=== PATIENT | female | born 1985 | race Caucasian/White ===

== ENCOUNTER → 2021-02-16 12:07 | Outpatient (BNVA) | payer OTHER, SELFPAY | PROVIDERS: PCP Internal Medicine; Visit Provider Advanced Practice Midwife ==

== ENCOUNTER → 2021-03-16 13:56 | Outpatient (BNVA) | payer OTHER, SELFPAY | PROVIDERS: PCP Nurse Practitioner Family; Visit Provider Advanced Practice Midwife | DX: Z30.432 Encounter for removal of intrauterine contraceptive device (principal) | CPT/HCPCS: 58301 ==

== ENCOUNTER 2022-11-17 06:47 | Outpatient (REF) | payer OTHER, SELFPAY ==
[2022-11-17 06:57] LABS: MANUAL DIFF FLAG NO
[2022-11-17 08:47] LABS: Basophils Absolute Auto 0.1 X10*3/uL (0.0-0.2); Eosinophils Absolute Auto 0.1 X10*3/uL (0.0-0.4); Eosinophils Percent Auto 1.7 % (0-4); Hematocrit 43.4 % (37.0-47.0); Hemoglobin 14.3 g/dl (12.0-16.0); Imm Gran Abs Auto 0.04 X10*3/uL (0.00-0.03); Imm Gran Pct Auto 0.5 % (0.0-0.4); Lymphocytes Absolute Auto 2.6 X10*3/uL (1.2-4.9); Lymphocytes Percent Auto 33.6 % (20-40); Mean Corpuscular HGB Conc 32.9 g/dl (31.0-35.0); Mean Corpuscular Hemoglobin 29.6 pg (27.0-33.0); Mean Corpuscular Volume 89.9 fL (80.0-98.0); Mean Platelet Volume 9.9 fL (9.4-12.3); Monocytes Absolute Auto 0.6 X10*3/uL (0.1-1.2); Neutrophils Absolute Auto 4.3 x10*3/uL (2.0-8.3); Neutrophils Percent Auto 55.2 % (45-73); Platelet Count 298 X10*3/uL (160-400); Red Blood Count 4.83 X10*6/uL (4.20-5.50); Red Cell Distribution Width 12.8 % (11.0-16.0); White Blood Count 7.7 X10*3/uL (4.8-10.8)
[2022-11-17 09:42] LABS: Alanine Aminotransferase 31 U/L (0-31); Albumin Level 4.2 g/dL (3.5-5.0); Alkaline Phosphatase 88 U/L (39-117); Anion Gap 12 (12-20); Aspartate Amino Transferase 23 U/L (5-31); Bilirubin Total 0.6 mg/dL (0.0-1.0); Blood Urea Nitrogen 19 mg/dL (9-16); Calcium 9.5 mg/dL (8.4-10.2); Carbon Dioxide 25 mmol/L (22-29); Chloride 105 mmol/L (96-108); Cholesterol 220 mg/dL; Estimated Glomerular Filt Rate > 60; Glucose Fasting 96 mg/dL (60-99); HDL Cholesterol 82 mg/dL; LDL Cholesterol Calculated 120 mg/dl; Sodium 138 mmol/L (135-145); TSH reflex Free T4 3.31 uIU/mL (0.32-4.0); Total Protein 6.9 g/dL (6.5-8.0); Triglycerides 90 mg/dL; Vitamin D 25-OH Total 31.8 ng/mL (>30)
[2022-11-17 09:52] LABS: Vitamin B12 457 pg/mL (200-900)
== END 2022-11-17 06:48 | disposition home or self-care (01) ==
LOC: HO.LAB 06:47
PROVIDERS: PCP Nurse Practitioner Family; Visit Provider Nurse Practitioner Family
DX: Z00.00 Encounter for general adult medical examination without abnormal findings (principal); Z13.29 Encounter for screening for other suspected endocrine disorder; Z13.220 Encounter for screening for lipoid disorders; Z13.1 Encounter for screening for diabetes mellitus; Z20.2 Contact with and (suspected) exposure to infections with a predominantly sexual mode of transmission; E66.9 Obesity, unspecified
CPT/HCPCS: 36415; 80053; 80061; 82306; 82607; 82746; 84443; 85025

== ENCOUNTER 2023-11-15 15:20 | Outpatient (AMB) | payer BC, SELFPAY ==
--- NOTE | 2023-11-15 15:23 | MHC.PC.OV ---
Vital Signs 11/15/23 15:26 Height 5 ft 7 in Weight 216 lb BMI 33.8 BP 112/72 Blood Pressure Location Lt brachial Position Sitting Pulse 89 Pulse Source Pulse Oximeter Pulse Oximetry (%) 97 Oxygen Delivery Method Room Air Intake Visit Reasons: J[facility]JAY [facility] pt Intake Note: Patient is here to follow up on JAYJAY from [facility]. Requesting for referral to IVF speciality in [place]. Guest Services Lead Required: No Meteorology Instructor: Not Required per policy Accompanied by: Self / Same As Patient Allergies metoclopramide [Reglan] Allergy (Unknown, Verified 11/19/23 11:29) rash From REGLAN Adverse Reaction (Unknown, Uncoded 11/19/23 11:29) UNKNOWN Medication List - Last Reconciled 11/19/23 by Randall Tovar MD aspirin 162 mg PO DAILY PNV,calcium 37-xgxy-xgyuo acid 27 mg iron- 1 mg ( Vitamins Plus Low Iron) 1 tab PO DAILY Tobacco use date assessed: 11/15/23 Dental Screening Dental Screen Date: 11/15/23 Did you have a dental visit in the last 12 months?: Yes Did you have a dental problem in the last 6 months where you did not have access to dental care?: No Was dental information given to patient?: Patient has dentist HPI JAYJAY B.S pt HPI Details 37-year-old female presents to the office requesting an annual physical. I will be taking over her care as her provider has left the practice. 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 She is requesting a referral for the same. [facility] Surgical History H/O dilation and curettage [place] teeth removed H/O breast augmentation Hx of tonsillectomy Family History Mother Diabetes Osteoporosis Father Hypertension High cholesterol Social History Housing: House Alcohol intake: current Alcohol intake frequency: a few times a week Patient Tobacco Use Status: Never used Tobacco e-Cigarette/Vaping Use: Never Used Second Hand Smoke Exposure: No service: No Current occupational status: employed Sexual orientation: Straight/Heterosexual Gender identity: Female Cognitive needs: No Hearing needs: No Vision needs: No Questionnaire PHQ-9 Over the last 2 weeks, how often have you been bothered by any of the following problems? 1. Little interest or pleasure in doing things: not at all 2. Feeling down, depressed, or hopeless: not at all 3. Trouble falling or staying asleep, or sleeping too much: not at all 4. Feeling tired or having little energy: not at all 5. Poor appetite or overeating: not at all 6. Feeling bad about yourself - or that you are a failure or have let yourself or your family down: not at all 7. Trouble concentrating on things, such as reading the newspaper or watching television: not at all 8. Moving or speaking so slowly that other people could have noticed. Or the opposite - being so fidgety or restless that you have been moving around a lot more than usual: not at all 9. Thoughts that you would be better off or of hurting yourself in some way: not at all Total score: 0 Depression Screening Interpretation: Negative Depression Screening Done: Yes Source: Developed by Drs. Indra Ravi, Nicole Londono, Alexis Atkins and colleagues, with an educational ana from [employer]. Thrive Questionnaire Date Thrive assessed: 11/15/23 I am a: Patient What is your living situation today?: I have a steady place to live Within the past 12 months, did the food you bought not last and you didn't have the money to get more?: Never true Within the past 12 months, did you worry whether your food would run out before you got money to buy more?: Never true Do you have trouble paying for medicines?: No Do you have trouble getting transportation to medical appointments?: No Do you have trouble paying your heating and electricity bill?: No Do you have trouble taking care of your child, family member or friend?: No Do you have trouble with day-to-day activities such as bathing, preparing meals, shopping, managing finances, etc.?: No Are you currently unemployed and looking for a job?: No Are you interested in more education?: No Currently or been in a relationship where the following occur: No concerns reported THRIVE Score: 0 AUDIT C Alcohol Use Questionnaire (AUDIT-C) 1. How often do you have a drink containing alcohol?: Never Total Score: 0 MAURA-7 AMB Questionnaire MAURA-7 Date MAURA - 7 assessed: 11/15/23 Feeling nervous, anxious, or on edge: 0 = Not at all Not being able to stop or control worryin = Not at all Worrying too much about different things: 0 = Not at all Trouble relaxin = Not at all Being so restless that it is hard to sit still: 0 = Not at all Becoming easily annoyed or irritable: 0 = Not at all Feeling afraid as if something awful might happen: 0 = Not at all Total MAURA-7 score (0-4 normal; 5-9 mild; 10-14 moderate; 15-21 severe): 0 Source: Developed by Drs. Indra Ravi, Nicole Londono, Alexis Atkins and colleagues, with an educational ana from [employer]. Physical exam (Primary Care) Vital Signs: Last Vital Signs Pulse 89 11/15/23 15:26 BP 112/72 11/15/23 15:26 Pulse Ox 97 11/15/23 15:26 Oxygen Delivery Method Room Air 11/15/23 15:26 BMI result Body Mass Index 33.8 Tobacco/Smoking Status: Tobacco use Status Tobacco use date assessed 11/15/23 11/15/23 15:32 Patient Tobacco Use Status Never used Tobacco 11/15/23 15:32 e-Cigarette/Vaping Use Never Used 11/15/23 15:32 PHQ-9: PHQ-9 Score PHQ-9: Total score 0 11/15/23 15:32 Depression Screening Interpretation: Negative Thrive Assessment: Date of Thrive Assessment Date Thrive assessed 11/15/23 11/15/23 15:32 Currently or been in a relationship where the following occur: No concerns reported Const General: cooperative and healthy appearing Nutritional Appearance: well nourished Orientation/consciousness: patient oriented x3 Limitations: no limitations HENMT Head: Yes normal to inspection Eyes General: appearance normal, both eyes and all related structures Neck Neck: Yes normal visual inspection Chest Chest palpation & inspection: normal palpation of entire chest wall Resp Effort & Inspection: normal respiratory effort Neuro General: patient oriented x3 Assessment and Plan Assessment & Plan (1) Adult general medical exam: Code(s): Z00.00 - Encounter for general adult medical examination without abnormal findings Plan: Patient is getting frequent testing done at the IVF clinic in [place]. A referral has been made. All blood work and routine procedures have been deferred till her IVF procedures are completed. Coding Level of Care Code Est Pt Prev Care [id number]([id number]) Diagnoses Adult general medical exam Z00.00
[2023-11-15 15:26] VITALS: BP 112/72; PULSE 89; O2SAT 97; BMI 33.8
== END 2023-11-15 16:52 | disposition home or self-care (01) ==
PROVIDERS: PCP Nurse Practitioner Family; Visit Provider Internal Medicine
DX: Z00.00 Encounter for general adult medical examination without abnormal findings (principal)
CPT/HCPCS: 99395